=== PATIENT | female | born 1940 | race Caucasian/White ===

== ENCOUNTER 2017-04-16 09:01 | Day surgery (SDC) | payer OTHER ==
[~2017-04-16] VITALS: Ht 163.8 cm; Wt 63.5 kg
[~2017-04-16 09:01] MED LIST: BISOPROLOL FUMAR5 MG PO; BISOPROLOL/HCTZ PO; CILOSTAZOL50 MG PO; K-DUR20 MEQ PO; LEVO-T88 MCG PO; METFORMIN HCL500 MG PO; NEXIUM40 MG PO; QUINAPRIL HCL40 MG PO; RANITIDINE HCL150 MG PO; SIMVASTATIN40 MG PO; TRIAMTERENE-HC1 EACH PO; TRIAMTERENE/HCTZ PO; TYLENOL WITH C1 EACH PO
[2017-04-16 10:01] LABS: POINT-OF-CARE METER ID UU13113696
[2017-04-16 15:56] VITALS: BP 158/76
[2017-04-16 19:29] VITALS: BP 161/70
[2017-04-17 00:39] VITALS: BP 99/56
[2017-04-17 04:46] VITALS: BP 126/61
[2017-04-17 05:21] LABS: BASOPHIL COUNT 0.1 K/uL (0-0.1); EOSINOPHIL (%) 2.9 % (0-5); EOSINOPHIL COUNT 0.2 K/uL (0-0.3); HEMATOCRIT 32.9 % (36.0-46.0); IMMATURE GRANULOCYTE (%) 0.5 % (0.0-0.7); INSTRUMENT ABS NEUTROPHIL CT 3.9 K/uL; LYMPHOCYTE COUNT 1.9 K/uL (1.0-2.8); MCH 31.6 PG (29.0-34.0); MCHC 34.3 G/DL (30.0-36.0); MEAN PLAT.VOLUME 12.2 uM^3 (9.5-12.4); MONOCYTE (%) 8.7 % (3-12); MONOCYTE COUNT 0.6 K/uL (0-0.8); NEUTROPHIL (%) 58.2 % (45-76); NEUTROPHIL COUNT 3.9 K/uL (1.8-6.4); PLATELET COUNT 193 K/uL (156-360); RBC DIS.WIDTH-CV 13.7 % (11.8-14.6); RBC DIS.WIDTH-SD 46.5 % (39-53); RED BLOOD COUNT 3.58 M/uL (3.80-5.20); WHITE BLOOD COUNT 6.7 K/uL (4.1-10.2)
[2017-04-17 05:51] LABS: ANION GAP 9 MEQ/L (2-14); CHLORIDE 110 MEQ/L (99-109); GFR ESTIMATE (CALCULATED) > 59 mL/min/; GLUCOSE 76 mg/dL (70-99); SAMPLE HEMOLYSIS CHECK 0; SAMPLE ICTERIC CHECK 0; SAMPLE LIPEMIA CHECK 0; SODIUM 142 MEQ/L (136-147); UREA NITROGEN (BUN) 17 mg/dL (9-23)
[2017-04-17 06:03] LABS: MCV 91.9 FL (83-99)
[2017-04-17 06:40] LABS: POTASSIUM 3.2 MEQ/L (3.7-5.4)
[2017-04-17] MEDS ORDERED: ASPIR-LOW81 MG PO (06:58)
[2017-04-17] MEDS ORDERED: EFFIENT10 MG PO (06:58)
[2017-04-17 08:02] VITALS: BP 160/65
== END 2017-04-17 10:40 | disposition home or self-care (01) ==
LOC: CATH 09:01 → 2SOUTH 13:09 → ENRESERV 13:15 → 4EAST 15:55 → ENPENDDIS 04-17 → 4EAST 04-17 10:40
PROVIDERS: Internal Medicine Cardiovascular Disease
DX: I25.10 Atherosclerotic heart disease of native coronary artery without angina pectoris (principal); I10 Essential (primary) hypertension; E11.9 Type 2 diabetes mellitus without complications; F17.200 Nicotine dependence, unspecified, uncomplicated; E78.5 Hyperlipidemia, unspecified; K21.9 Gastro-esophageal reflux disease without esophagitis; R01.1 Cardiac murmur, unspecified; I73.9 Peripheral vascular disease, unspecified
CPT/HCPCS: 80048; 82948; 85025; 85347; 93005; C1725; C1769; C1874; C1887; G0378; J0153; J1644; J2250; J3010; J7030; J7050